=== PATIENT | male | born 1990 | race Caucasian/White ===

== ENCOUNTER 2016-09-10 10:05 | Emergency (ER) ==
[2016-09-10 10:19] VITALS: BP 124/80; TEMP 98; BMI 18.3
[2016-09-10] MEDS ORDERED: ZOFRAN 4 MG/2 ML IM STA (10:28)
--- NOTE | 2016-09-10 10:29 | ED.PDOC ---
General ED Provider: Dr. AXEL DENNIS JR Chief Complaint: Nausea/Vomiting Stated Complaint: Vomiting x 2 days. States got hot at work et has been vomiting ever since. No diarrhea.[End]2 days 98.0 118 22 98% 124/80 01/10 took dramamine Time Seen by Physician: 10:28 Mode of Arrival: Walk-In Information Source: Patient Exam Limitations: No limitations Primary Care Provider: KATHARINA MACARIO Nursing and Triage Documentation Reviewed and Agree: No Review of Systems - Review Of Systems Constitutional: Reports: Malaise, Weakness Eyes: Reports: No symptoms Ears, Nose, Mouth, Throat: Reports: No symptoms Respiratory: Reports: Short of air Cardiac: Reports: Lightheadedness GI: Reports: Abdominal pain, Nausea, Vomiting : Reports: No symptoms Musculoskeletal: Reports: No symptoms Skin: Reports: No symptoms Neurological: Reports: No symptoms Endocrine: Reports: No symptoms Hematologic/Lymphatic: Reports: No symptoms All Other Systems: Other Past Medical History - Past Medical History Previously Healthy: Yes Endocrine: Reports: None Cardiovascular: Reports: None Respiratory: Reports: None Hematological: Reports: None Gastrointestinal: Reports: None Genitourinary: Reports: None Neuro/Psych: Reports: None Musculoskeletal: Reports: None Cancer: Reports: None Other Pertinent Past Medical History: Fx left LEG x 2 - Surgical History General Surgical History: Reports: Unknown - Family History Family History: Reports: Unknown - Social History Smoking Status: Current every day smoker, Light tobacco smoker Hx Substance Use: No Alcohol Screening: None Physical Exam - Physical Exam Appearance: Ill-appearing Ill-appearing: Mild Pain Distress: Mild Eyes: RICHIE, EOMI, Conjunctiva clear ENT: Ears normal, Nose normal, Oropharynx normal Neck: Supple Respiratory: Airway patent, Breath sounds clear, Breath sounds equal, Respirations nonlabored Cardiovascular: RRR, Pulses normal, No rub, No murmur GI/: Soft, No masses, Bowel sounds normal, No Organomegaly, Tender (nonfocal) Musculoskeletal: Normal strength, ROM intact, No edema, No calf tenderness Skin: Warm, Dry, Normal color Neurological: Sensation intact, Motor intact, Reflexes intact, Cranial nerves intact, Alert, Oriented Re-Evaluation - Re-Evaluation Time of Re-Evaluation: 11:30 Status: Improved (given ice chips) Critical Care Note - Critical Care Note Total Time (mins): 0 Course - Course Orders, Labs, Meds: Orders Category Date Time Status Ondansetron HCl/Pf [Zofran 4 mg/2 ml] MEDS 09/10/16 10:28 Discontinued 4 mg IM ONCE STA Medications Discontinued Medications Generic Name Dose Route Start Last Admin Trade Name Boboq PRN Reason Stop Dose Admin Ondansetron HCl 4 mg 09/10/16 10:28 09/10/16 10:39 Zofran 4 Mg/2 Ml IM 09/10/16 10:29 4 mg ONCE STA Administration Vital Signs: Temp Pulse Resp BP Pulse Ox 09/10/16 10:07 98.0 F 118 H 22 124/80 98 Departure - Departure Time of Disposition: 11:53 Disposition: HOME SELF-CARE Discharge Problem: Nausea, Vomiting Instructions: Dehydration (ED), Gastroenteritis (ED), Acute Nausea and Vomiting (ED) Condition: Good Pt referred to PMD for follow-up: Yes Additional Instructions: may return to work tomorrow keep hydrated- urine should be colorless if drinking enough fluids recheck PMD one week sooner if not resolved may us Phenergan for nausea or Zofran(may not be covered by insurance) Prescriptions: Ondansetron HCl [Zofran Tab] 4 mg PO QID PRN #12 tablet PRN Reason: Nausea / Vomiting Promethazine HCl [Phenergan Tab] 25 mg PO QID PRN #12 tablet PRN Reason: Nausea / Vomiting Allergies/Adverse Reactions: Allergies tramadol Adverse Reaction (Verified 09/10/16 10:14) as reported by mother when he was younger Home Medications: Ambulatory Orders Ondansetron HCl [Zofran Tab] 4 mg PO QID PRN #12 tablet 09/10/16 Promethazine HCl [Phenergan Tab] 25 mg PO QID PRN #12 tablet 09/10/16
== END 2016-09-10 12:07 | disposition home or self-care (01) ==
LOC: ED 10:05
DX: R11.2 Nausea with vomiting, unspecified (principal); F17.210 Nicotine dependence, cigarettes, uncomplicated
CPT/HCPCS: 96372; 99282